=== PATIENT | female | born 1970 | race Caucasian/White ===

== ENCOUNTER 2021-12-10 14:38 | Outpatient (CLI) | payer BC, SELFPAY ==
--- NOTE | ~2021-12-10 | DEXA_ITS ---
Bone Density Report Name: AMIRA WIN Age: 51 Sex: Female Ethnicity: White Date of : 1970 Indication: postmenopausal; prior fracture; Referring Provider: Lashay Messnia Study: Bone densitometry was performed. Exam Date: December 10, 2021 Accession number: [id number] Bone Density: Region BMD T-score Z-score Classification AP Spine (L1-L4) 0.942 -1.0 -0.1 Normal Femoral Neck (Left) 0.654 -1.8 -0.9 Osteopenia Total Hip (Left) 0.736 -1.7 -1.2 Osteopenia Total Hip Bilateral Avg 0.753 -1.6 -1.0 Osteopenia Femoral Neck (Right) 0.708 -1.3 -0.4 Osteopenia Total Hip (Right) 0.769 -1.4 -0.9 Osteopenia World Health Organization criteria for BMD impression classify patients as: Normal (T-score at or above -1.0), Osteopenia (T-score between -1.0 and -2.5), or Osteoporosis (T-score at or below -2.5). 10-year Fracture Risk(1): Major Osteoporotic Fracture 8.9% Hip Fracture 1.1% Reported Risk Factors: [place] (), Neck BMD=0.654, BMI=19.8, previous fracture (1) FRAX(R) Version 3.08. Fracture probability calculated for an untreated patient. Fracture probability may be lower if the patient has received treatment. Clinical Information Provided by Patient: Has had a low trauma fracture Patient maximum height was 68 Does not regularly consume dairy products Drinks caffeinated beverages Onset of menses at age 14 Number of children 2 Impression: The patient has low bone mass, based on the Left Femoral Neck T-score. The patient has an estimated ten-year risk of hip fracture of 1.1% and an estimated ten-year risk of major fracture of 8.9%, based on the WHO FRAX algorithm. The patient has risk factors, including: previous fracture. Discussion: BONE DENSITY IS LOW AT ONE OR MORE SKELETAL SITES. This patient's lowest T-score is low at one or more skeletal sites. It meets the World Health Organization's (WHO) criteria for ?low bone mass? (T-score between -1.0 and -2.5). The patient's 10-year risk of fracture as calculated by FRAX is less than the threshold where pharmacological therapy is recommended by the National Osteoporosis Foundation (NOF). However, all treatment decisions require clinical judgment and consideration of individual patient factors, including patient preferences, comorbidities, previous drug use, risk factors not captured in the FRAX model (e.g., frailty, falls, vitamin D deficiency, increased bone turnover, interval significant decline in bone density) and possible under or overestimation of fracture risk by FRAX. The patient should follow a healthful lifestyle (good nutrition with adequate calcium and vitamin D, and appropriate weight-bearing exercise). Follow-Up: Consider repeating this study in 2 to 3 years to reassess this patient's status, or sooner if there is some new clinical indication.
== END 2021-12-10 14:39 | disposition home or self-care (01) ==
LOC: ANHIMG 14:39
PROVIDERS: PCP Family Medicine; Visit Provider Nurse Practitioner Family
DX: N95.8 Other specified menopausal and perimenopausal disorders (principal); M85.852 Other specified disorders of bone density and structure, left thigh; M85.851 Other specified disorders of bone density and structure, right thigh
CPT/HCPCS: 77080

== ENCOUNTER → 2022-06-15 11:51 | Outpatient (CLI) | payer BC, SELFPAY ==
--- NOTE | ~2022-06-15 | US_ITS ---
US abdomen limited INDICATION: Right flank pain. History of cholecystectomy. PROCEDURE: Realtime right upper abdominal ultrasound. COMPARISON: No prior studies for comparison. FINDINGS: The pancreas is normal without focal mass or pancreatic ductal dilation. Liver echotexture is normal without focal mass or intrahepatic biliary dilatation. There is normal directional flow i n the portal vein. Gallbladder is surgically absent. Common bile duct measures 6 mm. No sonographic Ennis's sign. IMPRESSION: 1: Unremarkable limited abdominal ultrasound postcholecystectomy. Reviewed, dictated and finalized at location B.
== END ==
PROVIDERS: PCP Family Medicine; Visit Provider Family Medicine
DX: R10.9 Unspecified abdominal pain (principal)
CPT/HCPCS: 76705

== ENCOUNTER 2025-04-18 13:20 | Emergency (ER) | payer BC, SELFPAY ==
--- NOTE | ~2025-04-18 | XR_ITS ---
HISTORY: Fall, Rt hand pain COMPARISON: None TECHNIQUE: 3 views of the right hand were performed. FINDINGS: No acute fracture is identified. The carpal arcs are intact. Periarticular osteopenia is identified. Gullwing deformity is identified within the proximal interphalangeal joint spaces of the second, thir d, fourth and fifth digits. Remaining joint spaces are otherwise preserved. No significant soft tissue swelling. No radiopaque foreign body is identified. IMPRESSION: Degenerative disease, without acute fracture or dislocation within the right hand, as detailed above. Reviewed, dictated and finalized at location A. IMPRESSION: Degenerative disease, without acute fracture or dislocation within the right green nd, as detailed above.
--- OUTSIDE RECORDS SUMMARY | 2025-04-18 13:25 | XMS_ITS | Clinical Summary ---
Author Organization [facility] Address [address] [place] [address] Care Team Providers Care Construction Framer Name Role Phone Enrique Waite MD Primary Care Provider Allergies No known active allergies Medications nirmatrelvir & ritonavir 300/100 (PAXLOVID) 20 x 150 MG & 10 x 100MG tablet pack Take 3 tablets by mouth 2 (two) times daily. Take TWO nirmatrelvir 150 mg tablet(s) along with ONE ritonavir 100 mg tablet, with all three tablets taken together, twice daily for 5 days. May take with or without food. Swallow tablets whole. Do not chew, break or crush.. 30 tablet Active Social History Tobacco Use Types Packs/Day Years Used Date Smoking Tobacco: Unknown Tobacco Cessation:Counseling Given: Not Answered Comments Unknown Sex and Gender Information Value Date Recorded Sex Assigned at Not on file Legal Sex Female 6:49 PM CDT Gender Identity Not on file Sexual Orientation Not on file Last Filed Vital Signs Vital Sign Reading Time Taken Comments Blood Pressure 113/64 09/03/2024 4:00 AM [facility] Pulse 71 09/03/2024 4:00 AM [facility] Temperature 36.1 C (96.9 F) 09/03/2024 4:00 AM [facility] Respiratory Rate 16 09/03/2024 4:00 AM [facility] Oxygen Saturation 100% 09/03/2024 4:00 AM [facility] Inhaled Oxygen Concentration - - Weight 59 kg (130 lb) 09/03/2024 1:35 AM [facility] Height 172.7 cm (5' 8) 09/03/2024 1:35 AM [facility] Body Mass Index 19.77 09/03/2024 1:35 AM [facility] Plan of Treatment Health Maintenance Due Date Last Done Comments Cervical Cancer Screening Pa p Smear (Age 30 to 64) Every 3 Years 1970 Colorectal Cancer Screening Colonoscopy (10 Years) 1970 Annual Physical 1973 Hepatitis C 1988 Hepatitis B Vaccines (1 of 3 - 19+ 3-dose series) 1989 Cervical Cancer Screening Pa p with HPV Testing (Age 30 to 64) Every 5 Years 2000 Cervical Cancer Screening wi th HPV 2000 Pneumococcal Vaccine: 50+ Years (1 of 1 - PCV) 2020 Zoster Vaccines (1 of 2) 2020 COVID-19 Vaccine (3 - 2023-2 5 season) 2024 09/26/2020, 09/07/2020 DTaP, Tdap and Td Vaccines ( 2 - Td or Tdap) 11/24/2025 11/25/2015 Mammogram Screening 04/23/2026 04/23/2024, 11/03/2022 Meningococcal B Vaccine Aged Out No l onger eligible based on patient's age to complete this topic Meningococcal Vaccine Aged Out No kurt herbert eligible based on patient's age to complete this topic RSV Immunizations Under 20 Months Aged Out No longer eligible b ased on patient's age to complete this topic Insurance [facility] Care Teams Construction Framer Relationship Specialty Start Date End Date Enrique Waite MD [address] [place] [address] PCP - General FAMILY PRACTICE 09/03/24
--- OUTSIDE RECORDS SUMMARY | 2025-04-18 13:27 | XMS_ITS | Clinical Summary ---
Author Organization [facility] Address [address] [place] [address] Care Team Providers Care Lung Gun Operator Name Role Phone Unavailable Primary Care Provider Unavailabl e Encounters Date Type Department Care Team Description 04/02/2025 External Device Data [facility] ABSTRACTION Provider, Abstract 04/01/2025 External Device Data [facility] Provider, Abstract 03/04/2025 External Device Data [facility]STRA[facility] Provider, Abstract 02/06/2025 External Device Data [facility]STRA[facility] Provider, Abstract 02/05/2025 External Device Data [facility] ABSTRACTION Provider, Abstract 02/04/2025 External Device Data [facility] ABSTRACTION Provider, Abstract 01/21/2025 External Device Data [facility] ABSTRACTION Provider, Abstract from Last 3 Months Social History Tobacco Use Types Packs/Day Years Used Date Smoking Tobacco: Never Assessed Comments Unknown Sex and Gender Information Value Date Recorded Sex Assigned at Not on file 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 Gender Identity Not on file Sexual Orientation Not on file Plan of Treatment Health Maintenance Due Date Last Done Comments DTAP/TDAP/TD VACCINES (1 - Tdap) 1989 HEPATITIS B VACCINES (1 of 3 - 19+ 3-dose series) 1989 HPV/Cotest (21-29) 1991 CERVICAL CANCER SCREENING 2000 HPV/Cotest (30-65) 2000 PAP SMEAR 2000 COLORECTAL SCREENING 2015 Colorectal Cancer Screening 2015 FIT-DNA Q 3 years 2015 FIT/FOBT Q 1 year 2015 Flex Sig/CT Colonography Q 5 years 2015 ZOSTER VACCINE (1 of 2) 2020 INFLUENZA VACCINE (#1) 2025 BREAST CANCER SCREENING 04/23/2025 04/23/20 24, 11/03/2022, 08/06/2021, Additional history exists Procedures Procedure Name Priority Date/Time Associated Diagnosis Comments MAMMO 3D DOROTHY SCREEN BILAT W OR WO CAD Routine 04/23/2024 2:13 PM CDT Visit for screening mammogram from Last 3 Months or Most Recently Relevant to Health Maintenance Results * MAMMO 3D DOROTHY SCREEN BILAT W OR WO CAD (04/23/2024 2:13 PM CDT) Anatomical Region Laterality Modality Breast Bilateral Mammography 04/23/2024 2:16 PM CDT Impressions 04/23/2024 2:22 PM CDT IMPRESSION: NO MAMMOGRAPHIC EVIDENCE OF MALIGNANCY. OVERALL BIRADS CATEGORY:1 - negative. ROUTINE SCREENING MAMMOGRAPHY IS RECOMMENDED IN 12 MONTHS. A normal letter will be sent to patient. Narrative 04/23/2024 2:22 PM CDT EXAM: MAMMO 3D DOROTHY SCREEN BILAT W OR WO CAD STUDY DATE: 04/23/2024 2:13 PM CLINICAL INDICATION: 53 years old female presents for routine screening mammography. COMPARISON: Prior mammograms, the most recent dated 11/03/2022 PROCEDURE: CC and MLO digital mammographic views of the bilateral breasts are obtained. Computer Aided Detection (CAD) was utilized. Tomosynthesis was done with all views. FINDINGS: Breast Density: Heterogeneously dense, which may lower the sensitivity of mammography. Right breast: There are no spiculated masses, suspicious microcalcifications or areas of architectural distortion in the right breast. Left breast: There are no spiculated masses, suspicious microcalcifications or areas of architectural distortion in the left breast. Ross Beltran MD MAMMO ORDERABLES Final Result from Last 3 Months or Most Recently Relevant to Health Maintenance Insurance [facility] BLUE ACCESS CHOICE Advance Directives For more information, please contact: [phone] Documents on File Type Date Recorded Patient Telesales Agent Expl anation Advance Directive Living Will 11/03/2022 10:52 AM photo id
[2025-04-18 13:30] VITALS: BP 114/68; PULSE 85; RESP 14; TEMP 36.6; O2SAT 100
--- NOTE | 2025-04-18 13:46 | ED_ITS ---
HPI - Extremity Injury (Upper) General Chief Complaint: Extremity Injury, Upper Stated Complaint: rt hand injury Time Seen by Provider: 04/18/25 13:46 Source: patient Mode of arrival: ambulatory Limitations: no limitations History of Present Illness HPI narrative: 54-year-old female presents with complaint of pain and bruising to right hand. Patient fell and landed on right hand while playing pickleball 4 days ago. Has been applying ice, taking [id number] pain meds. Continues to have pain, concern for fracture. Distal neurovascularly intact. denies pain to R wrist. All systems reviewed and negative except as noted above. Related Data Home Medications ?Medication ?Instructions ?Recorded ?Confirmed ?Last Taken ?Type levonorgestrel (Mirena) 1 device intrauterine ONCE 08/05/19 11/25/24 Unknown History Allergies Allergy/AdvReac Type Severity Reaction Status Date / Time No Known Allergies Allergy Verified 04/18/25 13:35 [facility] Social History Social History Smoking packs per day: 1 Smoking cigarettes per day: 20.0 Years smoked: 4 Smoking pack-years: 4.00 Smoking status: Former smoker Tobacco type: cigarettes Second hand tobacco smoke exposure: Yes Smoking end date: 09/18/91 Alcohol intake: current Drinks per week: 1 Substance use: never Substance use type: does not use Do You Feel Safe in your Home?: Yes Lack of Transportation: No Lack of Food: Never True Current Housing: I Have Housing Concerned About Future Housing: No Difficulty Paying Gas/Electric Bills: No Difficulty Paying for Meds: No Currently Unemployed: No Education: Master's Degree or Higher Living arrangements: with family Occupation/Education: occupation Gender identity (if verbalized by the patient): Female Comments At time of signature, agree with nursing past medical, surgical, social and family history. There is no relevant family history pertinent to the presenting complaint. Exam Narrative: GENERAL: This is a well-nourished, well-developed patient, in no apparent di stress. HEAD: normocephalic, atraumatic. EYES: PERRL. Sclera clear/white. Vision is grossly intact. EARS: External ears normal NOSE: External nose normal NECK: Neck supple, non-tender without lymphadenopathy, masses or thyromegaly. CARDIOVASCULAR: Regular rate and rhythm without murmurs, gallops, or rubs. RESPIRATORY: Clear to auscultation. Breath sounds equal bilaterally. No wheezes, rales, or rhonchi. SKIN: warm, Dry, intact with no suspicious lesions or rash, good texture and turgor. NEURO: awake, alert, and oriented to person, place and time. There were no obvious focal neurologic abnormalities. EXTREMITIES: Swelling to entire right hand including fingers. There is bruising to the palm of hand. Range of motion is decreased due to pain and swelling. Normal strength, no concerns for tendon injury. Course Course Level of Care: Express Care Visit Vital Signs Vital signs: Vital Signs Temperature 36.6 C 04/18/25 13:30 Pulse Rate 85 04/18/25 13:30 Respiratory Rate 14 04/18/25 13:30 Blood Pressure 114/68 04/18/25 13:30 Pulse Oximetry 100 04/18/25 13:30 Oxygen Delivery Room Air 04/18/25 13:30 Temperature 36.6 C 04/18/25 13:30 Pulse Rate 85 04/18/25 13:30 Respiratory Rate 14 04/18/25 13:30 Blood Pressure 114/68 04/18/25 13:30 Pulse Oximetry 100 04/18/25 13:30 Oxygen Delivery Room Air 04/18/25 13:30 Reviewed MDM - Extremity Injury (Upper) MDM Narrative Medical decision making narrative: discussed x-ray results with patient. Negative for fracture. Patient has pain bruising and swelling to right hand. Recommend rest, ice, [id number] pain meds. Will follow up with primary care physician if pain is not improving. Differential Diagnosis Differential diagnosis: Likely fracture of hand and other (hand contusion/sprain) Imaging Data My impression: Agree with radiologist Radiologist's impression: HISTORY: Fall, Rt hand pain COMPARISON: None TECHNIQUE: 3 views of the right hand were performed. FINDINGS: No acute fracture is identified. The carpal arcs are intact. Periarticular osteopenia is identified. 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 Remaining joint spaces are otherwise preserved. No significant soft tissue swelling. No radiopaque foreign body is identified. IMPRESSION: Degenerative disease, without acute fracture or dislocation within the right hand, as detailed above. Discharge Plan Discharge Clinical Impression: Sprain and strain of right hand Patient Disposition: Home Condition: Stable Instructions: Hand Sprain (ED) Additional Instructions: The x-ray of your right hand was negative for fracture. Take ibuprofen or tylenol every 6 to 8 hours as needed for pain. Elevate when at rest. Apply ice as needed for pain. If pain and swelling not improving over the next 3 to 4 weeks, follow up with your doctor. Patient Language: Norwegian Prescriptions: No Action Mirena 20 mcg/24 hours (5 yrs) 52 mg intrauterine device 1 device I-UTERINE ONCE diazepam [Valium] 5 mg tablet 5 mg PO BID PRN (Reason: anxiety) Qty: 60 0RF Follow-up/Referrals: Enrique Waite MD [Primary Care Provider] - Time of Disposition: 13:55
== END 2025-04-18 13:58 | disposition home or self-care (01) ==
PROVIDERS: Emergency Provider Nurse Practitioner Family; PCP Family Medicine
DX: S63.91XA Sprain of unspecified part of right wrist and hand, initial encounter (principal); S66.911A Strain of unspecified muscle, fascia and tendon at wrist and hand level, right hand, initial encounter; W19.XXXA Unspecified fall, initial encounter; Y93.73 Activity, racquet and hand sports; Z87.891 Personal history of nicotine dependence
CPT/HCPCS: 73130; 99213; G0463

== ENCOUNTER 2025-06-19 14:59 | Outpatient (CLI) | payer BC, SELFPAY ==
--- NOTE | ~2025-06-19 | DEXA_ITS ---
Bone Density Report Name: AMIRA WIN Age: 55 Sex: Female Ethnicity: White Date of : 1970 Indication: osteopenia; history of glucocorticoids; Referring Provider: Enrique Waite Study: Bone densitometry was performed. Exam Date: June 19, 2025 Accession number: [id number] Bone Density: Region BMD T-score Z-score Classification AP Spine(L1-L4) 0.860 -1.7 -0.6 Osteopenia Femoral Neck (Left) 0.629 -2.0 -0.9 Osteopenia Total Hip (Left) 0.677 -2.2 -1.5 Osteopenia Femoral Neck (Right) 0.616 -2.1 -1.0 Osteopenia Total Hip (Right) 0.684 -2.1 -1.4 Osteopenia Total Hip Mean 0.681 -2.2 -1.5 Osteopenia World Health Organization criteria for BMD impression classify patients as: Normal (T-score at or above -1.0), Osteopenia (T-score between -1.0 and -2.5), or Osteoporosis (T-score at or below -2.5). 10-year Fracture Risk: FRAX not reported because: Premenopausal woman Previous Exams: -- Region Exam Age BMD T-score BMD Change BMD Change Date g/cm2 vs Baseline vs Previous -- AP Spine (L1-L4) 06/19/2025 55 0.860 -1.7 -8.7%# -8.7%# 12/10/2021 51 0.942 -1.0 Total Hip(Left) 06/19/2025 55 0.677 -2.2 -8.0%# -8.0%# 12/10/2021 51 0.736 -1.7 Total Hip(Right) 06/19/2025 55 0.684 -2.1 -11.0%# -11.0%# 12/10/2021 51 0.769 -1.4 -- *Denotes significance at 95% confidence level, LSC for AP Spine = 0.022 g/cm2, LSC for Total Hip = 0.027 g/cm2 # Denotes dissimilar scan types or analysis methods Clinical Information Provided by Patient: Has taken Glucocorticoids Has used the following medications: HRT (i.e. estrogen/hormone therapy), Vitamin D, Calcium Patient maximum height was 68 No regular weight bearing exercise Does not regularly consume dairy products Drinks caffeinated beverages Onset of menses at age 13 Premenopausal Number of children 2 Impression: The patient's bone mass is within expected range for age, gender and ethnicity. The patient has risk factors, including: history of glucocorticoid therapy. Unable to evaluate interval change due to the use of different scan modes. Discussion: BONE DENSITY IS WITHIN EXPECTED LIMITS FOR AGE, SEX AND RACE. Bone density is within expected limits for age, sex and race at all sites measured. The patient should follow a healthful lifestyle (good nutrition with adequate calcium and vitamin D, and appropriate weight-bearing exercise). Follow-Up: Consider repeating this study in 2 to 3 years to reassess this patient's status, or sooner if there is some new clinical indication. Reported by: ELVIE on 06/19/2025 3:32:00 PM. Reviewed, dictated and finalized at location A.
== END 2025-06-19 15:00 | disposition home or self-care (01) ==
LOC: MICIMG 15:00
PROVIDERS: PCP Family Medicine; Visit Provider Family Medicine
DX: M85.89 Other specified disorders of bone density and structure, multiple sites (principal); Z78.0 Asymptomatic menopausal state
CPT/HCPCS: 77080